=== PATIENT | male | born 2000 | race American Indian/Alaskan Native ===

== ENCOUNTER 2023-03-06 17:54 | Emergency (ER) | payer MEDICAID, SELFPAY ==
--- NOTE | ~2023-03-06 | XR_ITS ---
EXAMINATION: XR FOOT, LEFT CLINICAL INFORMATION: Toe pain status post injury. COMPARISON: None available. TECHNIQUE: AP, lateral, and oblique views of the left foot. FINDINGS: The bones and soft tissues are normal. No fracture. Alignment is anatomic. Joint spaces are maintained. XR/XR foot LT min 3V IMPRESSION: Unremarkable left foot exam.
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
[2023-03-06 19:00] VITALS: BP 118/75; PULSE 93; RESP 19; TEMP 36.6; O2SAT 96; BMI 33.0
[2023-03-06] MEDS: Diphth,Pertus(ACell),Tet Adult 0.5 ML SYRINGE IM (19:15)
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
--- NOTE | 2023-03-06 21:10 | PC.NURSE ---
Wound cleaned with sterile water after provider administered lido injections.
[2023-03-06] MEDS: levoFLOXacin 500 MG TABLET PO (21:41)
[2023-03-06 21:55] VITALS: BP 122/72; PULSE 88; RESP 18; O2SAT 98
== END 2023-03-06 21:56 | disposition home or self-care (01) ==
PROVIDERS: Emergency Provider Emergency Medicine
DX: S91.112A Laceration without foreign body of left great toe without damage to nail, initial encounter (principal); W01.0XXA Fall on same level from slipping, tripping and stumbling without subsequent striking against object, initial encounter; Y93.89 Activity, other specified; Y92.014 Private driveway to single-family (private) house as the place of occurrence of the external cause; Y99.9 Unspecified external cause status
CPT/HCPCS: 12002; 73630; 90471; 90715; 99283; 99284

== ENCOUNTER 2023-03-16 17:53 | Emergency (ER) | payer MEDICAID, SELFPAY ==
[2023-03-16 18:31] VITALS: BP 112/86; PULSE 82; RESP 18; TEMP 36.2; O2SAT 97; BMI 33.0
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
== END 2023-03-16 18:46 | disposition home or self-care (01) ==
PROVIDERS: Emergency Provider Emergency Medicine
DX: Z48.02 Encounter for removal of sutures (principal); S91.112D Laceration without foreign body of left great toe without damage to nail, subsequent encounter; V94.89XD Other water transport accident, subsequent encounter
CPT/HCPCS: 99282; 99283